=== PATIENT | male | born 1980 | race Caucasian/White ===

== ENCOUNTER 2019-05-26 04:31 | Emergency (ER) | payer OTHER ==
[~2019-05-26] VITALS: Ht 185.4 cm; Wt 95.3 kg
[2019-05-26 05:19] LABS: BASO % 0.6 % (0.0-1.0); EOS # 0.2 10*3/uL (0.0-0.4); EOS % 2.4 % (1.0-4.0); HEMATOCRIT 43.2 % (42.0-52.0); HEMOGLOBIN 14.8 g/dl (14.0-18.0); LYMPH # 1.5 10*3/uL (1.3-4.4); LYMPH % 22.3 % (27.0-41.0); MEAN CELL VOLUME 93.3 fl (80.0-94.0); MEAN CORPUSCULAR HGB CONC 34.3 g/dl (33.0-37.0); MEAN PLATELET VOLUME 9.8 fl (9.6-12.3); MONO # 0.6 10*3/uL (0.1-1.0); MONO % 9.8 % (3.0-9.0); NEUT # 4.2 10*3/uL (2.3-7.9); NEUT % 64.7 % (47.0-73.0); PLATELET COUNT AUTOMATED 226 10*3/uL (130-400); RED BLOOD COUNT 4.63 10*6/uL (4.50-5.90); RED CELL DISTRI WIDTH 12.5 % (0-14.5); WHITE BLOOD COUNT 6.5 10*3/uL (4.8-10.8)
[2019-05-26 05:34] LABS: ALBUMIN 3.8 gm/dl (3.1-4.5); ALKALINE PHOSPHATASE 52 U/L (45-117); BUN 20 mg/dl (7-24); CHLORIDE 108 mmol/L (98-107); CREATININE 0.87 mg/dL (0.70-1.30); POTASSIUM 3.4 mmol/L (3.5-5.1); SGOT/AST 15 IU/L (3-35); SGPT/ALT 23 U/L (12-78); SODIUM 140 mmol/L (136-145); TOTAL PROTEIN 6.9 gm/dL (6.4-8.2); URIC ACID 6.3 mg/dL (3.5-7.2)
[2019-05-26] MEDS ORDERED: LEVOFLOXACIN500 MG PO (06:28)
[2019-05-26] MEDS ORDERED: NORCO 5-325 TA1 EACH PO (06:28)
[2019-05-26] MEDS ORDERED: FLAGYL500 MG PO (06:28)
== END 2019-05-26 08:12 | disposition home or self-care (01) ==
LOC: ED 04:31
PROVIDERS: Emergency Medicine Emergency Medical Services
DX: L03.012 Cellulitis of left finger (principal); F17.210 Nicotine dependence, cigarettes, uncomplicated; Z88.0 Allergy status to penicillin

== ENCOUNTER 2019-06-04 11:44 | Emergency (ER) | payer OTHER ==
[~2019-06-04] VITALS: Ht 185.4 cm; Wt 90.7 kg
[~2019-06-04 11:44] MED LIST: FLAGYL500 MG PO; LEVOFLOXACIN500 MG PO; NORCO 5-325 TA1 EACH PO
== END 2019-06-04 12:20 | disposition home or self-care (01) ==
LOC: ED 11:44
DX: Z48.01 Encounter for change or removal of surgical wound dressing (principal); F17.210 Nicotine dependence, cigarettes, uncomplicated; Z88.0 Allergy status to penicillin; Z79.2 Long term (current) use of antibiotics; Z79.899 Other long term (current) drug therapy

== ENCOUNTER 2019-09-30 19:56 | Emergency (ER) | payer SELFPAY ==
[~2019-09-30] VITALS: Ht 185.4 cm; Wt 86.2 kg
[2019-09-30 20:35] LABS: BASO # 0.1 10*3/uL (0.0-0.1); BASO % 0.5 % (0.0-1.0); EOS # 0.1 10*3/uL (0.0-0.4); HEMATOCRIT 41.5 % (42.0-52.0); HEMOGLOBIN 14.1 g/dl (14.0-18.0); LYMPH # 1.2 10*3/uL (1.3-4.4); LYMPH % 11.5 % (27.0-41.0); MEAN CELL VOLUME 93.5 fl (80.0-94.0); MEAN CORPUSCULAR HGB 31.8 pg (27.0-31.0); MEAN PLATELET VOLUME 9.7 fl (9.6-12.3); MONO # 0.8 10*3/uL (0.1-1.0); MONO % 7.6 % (3.0-9.0); NEUT # 8.4 10*3/uL (2.3-7.9); NEUT % 79.1 % (47.0-73.0); PLATELET COUNT AUTOMATED 199 10*3/uL (130-400); RED BLOOD COUNT 4.44 10*6/uL (4.50-5.90); RED CELL DISTRI WIDTH 12.7 % (0-14.5); WHITE BLOOD COUNT 10.6 10*3/uL (4.8-10.8)
[2019-09-30 20:55] LABS: ALBUMIN 3.1 gm/dl (3.1-4.5); ALKALINE PHOSPHATASE 58 U/L (45-117); BUN 13 mg/dl (7-24); CHLORIDE 108 mmol/L (98-107); CREATININE 0.96 mg/dL (0.70-1.30); POTASSIUM 3.5 mmol/L (3.5-5.1); SGOT/AST 12 IU/L (3-35); SGPT/ALT 20 U/L (12-78); SODIUM 139 mmol/L (136-145); TOTAL PROTEIN 6.7 gm/dL (6.4-8.2)
[2019-09-30] MEDS ORDERED: IBU600 M1 PO (21:12)
[2019-09-30] MEDS ORDERED: VIBRAMYCIN100 MG PO (21:12)
== END 2019-09-30 21:45 | disposition home or self-care (01) ==
LOC: ED 19:56
PROVIDERS: Physician Assistant
DX: L02.413 Cutaneous abscess of right upper limb (principal); F17.210 Nicotine dependence, cigarettes, uncomplicated; Z88.0 Allergy status to penicillin

== ENCOUNTER 2019-10-04 10:03 | Emergency (ER) | payer SELFPAY ==
[~2019-10-04] VITALS: Ht 185.4 cm; Wt 86.2 kg
[~2019-10-04 10:03] MED LIST changes: +IBU600 M1 PO; +VIBRAMYCIN100 MG PO
== END 2019-10-04 10:32 | disposition home or self-care (01) ==
LOC: ED 10:03
DX: Z48.01 Encounter for change or removal of surgical wound dressing (principal); L53.9 Erythematous condition, unspecified; M79.89 Other specified soft tissue disorders; F17.210 Nicotine dependence, cigarettes, uncomplicated; Z88.0 Allergy status to penicillin; Z79.899 Other long term (current) drug therapy; Z79.2 Long term (current) use of antibiotics

== ENCOUNTER 2019-10-06 12:28 | Emergency (ER) | payer SELFPAY ==
[~2019-10-06] VITALS: Ht 185.4 cm; Wt 90.7 kg
== END 2019-10-06 13:44 | disposition home or self-care (01) ==
LOC: ED 12:28
DX: Z48.01 Encounter for change or removal of surgical wound dressing (principal); L02.413 Cutaneous abscess of right upper limb; F17.210 Nicotine dependence, cigarettes, uncomplicated; Z88.0 Allergy status to penicillin; Z79.899 Other long term (current) drug therapy; Z79.2 Long term (current) use of antibiotics

== ENCOUNTER 2019-12-13 18:39 | Emergency (ER) | payer SELFPAY ==
[~2019-12-13] VITALS: Ht 185.4 cm; Wt 95.3 kg
[2019-12-13] MEDS ORDERED: SEPTDS PO (20:13)
[2019-12-13] MEDS ORDERED: IBU800 MG PO (20:13)
[2019-12-13] MEDS ORDERED: TOBRAMYCIN 5 ML5 M1 OPH (20:13)
== END 2019-12-13 21:16 | disposition home or self-care (01) ==
LOC: ED 18:39
DX: T15.02XA Foreign body in cornea, left eye, initial encounter (principal); Z88.0 Allergy status to penicillin; Z79.899 Other long term (current) drug therapy; W39.XXXA Discharge of firework, initial encounter; Y93.89 Activity, other specified; Y92.096 Garden or yard of other non-institutional residence as the place of occurrence of the external cause; Y99.8 Other external cause status

== ENCOUNTER 2020-03-15 01:29 | Emergency (ER) | payer SELFPAY ==
[~2020-03-15] VITALS: Ht 185.4 cm; Wt 93.0 kg
[~2020-03-15 01:29] MED LIST changes: +IBU800 MG PO; +SEPTDS PO; +TOBRAMYCIN 5 ML5 M1 OPH
== END 2020-03-15 02:25 | disposition home or self-care (01) ==
LOC: ED 01:29
DX: S05.01XA Injury of conjunctiva and corneal abrasion without foreign body, right eye, initial encounter (principal); F17.200 Nicotine dependence, unspecified, uncomplicated; Z88.0 Allergy status to penicillin; Z79.899 Other long term (current) drug therapy; X58.XXXA Exposure to other specified factors, initial encounter; Y93.89 Activity, other specified; Y92.89 Other specified places as the place of occurrence of the external cause; Y99.8 Other external cause status

== ENCOUNTER 2022-10-05 06:10 | Emergency (ER) | payer SELFPAY | END 2022-10-05 06:47 | disposition left against medical advice (07) | LOC: ED 06:10 | DX: T50.901A Poisoning by unspecified drugs, medicaments and biological substances, accidental (unintentional), initial encounter (principal); F17.210 Nicotine dependence, cigarettes, uncomplicated; Z88.0 Allergy status to penicillin; Y92.89 Other specified places as the place of occurrence of the external cause ==

== ENCOUNTER 2022-11-27 12:38 | Emergency (ER) | payer SELFPAY ==
[~2022-11-27] VITALS: Wt 93.0 kg
== END 2022-11-27 14:00 | disposition home or self-care (01) ==
LOC: ED 12:38
DX: R50.9 Fever, unspecified (principal); Z20.822 Contact with and (suspected) exposure to COVID-19; F17.200 Nicotine dependence, unspecified, uncomplicated; Z88.0 Allergy status to penicillin; F10.10 Alcohol abuse, uncomplicated; F17.210 Nicotine dependence, cigarettes, uncomplicated; Z98.890 Other specified postprocedural states

== ENCOUNTER 2022-11-29 14:49 | Emergency (ER) | payer SELFPAY ==
[~2022-11-29] VITALS: Wt 90.7 kg
[2022-11-29 15:46] LABS: HEMATOCRIT 44.5 % (42.0-52.0); MEAN CELL VOLUME 87.6 fl (80.0-94.0); MEAN CORPUSCULAR HGB 31.1 pg (27.0-31.0); MEAN CORPUSCULAR HGB CONC 35.5 g/dl (33.0-37.0); MEAN PLATELET VOLUME 9.8 fl (9.6-12.3); PLATELET COUNT AUTOMATED 131 10*3/uL (130-400); RED BLOOD COUNT 5.08 10*6/uL (4.50-5.90); WHITE BLOOD COUNT 5.6 10*3/uL (4.8-10.8)
[2022-11-29 16:13] LABS: ALKALINE PHOSPHATASE 435 U/L (46-116); BUN 15 mg/dl (9-23); CHLORIDE 92 mmol/L (98-107); LIPASE 23 U/L (12-53); POTASSIUM 3.6 mmol/L (3.4-5.1); TOTAL PROTEIN 6.4 gm/dL (6.0-8.0)
[2022-11-29 16:14] LABS: SGPT/ALT > 3300 U/L (10-49)
[2022-11-29 16:23] LABS: MANUAL DIFF REFLEX YES
[2022-11-29 16:28] LABS: ATYPICAL LYMPHS 13 % (0-0); TOTAL CELLS COUNTED 100 #CELLS
[2022-11-29 16:29] LABS: BURR CELLS MODERATE
[2022-11-29 16:30] LABS: PLATELET SUFFICIENCY LOW (NORMAL)
== END 2022-11-29 16:59 | disposition home or self-care (01) ==
LOC: ED 14:49
PROVIDERS: Internal Medicine
DX: B17.9 Acute viral hepatitis, unspecified (principal); Z88.0 Allergy status to penicillin; Z90.89 Acquired absence of other organs; F10.10 Alcohol abuse, uncomplicated; F17.200 Nicotine dependence, unspecified, uncomplicated; F17.210 Nicotine dependence, cigarettes, uncomplicated

== ENCOUNTER 2022-11-30 12:19 | Emergency (ER) | payer SELFPAY ==
[~2022-11-30] VITALS: Ht 185.4 cm; Wt 90.7 kg
[2022-11-30 13:13] LABS: MEAN CELL VOLUME 89.9 fl (80.0-94.0); MEAN CORPUSCULAR HGB 32.1 pg (27.0-31.0); MEAN CORPUSCULAR HGB CONC 35.7 g/dl (33.0-37.0); MEAN PLATELET VOLUME 11.1 fl (9.6-12.3); PLATELET COUNT AUTOMATED 116 10*3/uL (130-400); RED BLOOD COUNT 5.45 10*6/uL (4.50-5.90); RED CELL DISTRI WIDTH 12.6 % (0-14.5); WHITE BLOOD COUNT 9.9 10*3/uL (4.8-10.8)
[2022-11-30 13:14] LABS: MANUAL DIFF REFLEX YES
[2022-11-30 13:32] LABS: ATYPICAL LYMPHS 18 % (0-0); BASOPHILS 1 % (0-1); TOTAL CELLS COUNTED 100 #CELLS
[2022-11-30 13:33] LABS: BURR CELLS MODERATE; PLATELET SUFFICIENCY LOW (NORMAL); POLYCHROMASIA SLIGHT
[2022-11-30 13:43] LABS: ALKALINE PHOSPHATASE 477 U/L (46-116); BUN 19 mg/dl (9-23); CHLORIDE 93 mmol/L (98-107); LIPASE 23 U/L (12-53); POTASSIUM 3.7 mmol/L (3.4-5.1)
[2022-11-30 13:46] LABS: SGPT/ALT > 3300 U/L (10-49)
[2022-11-30 14:13] LABS: INTERNATIONAL NORM RATIO 1.2 (2.0-3.5)
[2022-11-30 15:26] LABS: URINE AMPHETAMINES Positive (1000ng/ml); URINE BARBITURATES Negative (200ng/ml); URINE BENZODIAZEPINES Negative (200ng/ml); URINE CANNABINOIDS (THC) Positive (50ng/ml); URINE COCAINE Negative (300ng/ml); URINE METHADONE Negative (300ng/ml); URINE OPIATES Negative (300ng/ml); URINE PHENCYCLIDINE Negative (25ng/ml)
[2022-12-01 01:24] LABS: INTERNATIONAL NORM RATIO 1.2 (2.0-3.5)
[2022-12-01 01:45] LABS: ALKALINE PHOSPHATASE 405 U/L (46-116); BUN 15 mg/dl (9-23); CHLORIDE 97 mmol/L (98-107); POTASSIUM 3.9 mmol/L (3.4-5.1); TOTAL PROTEIN 6.2 gm/dL (6.0-8.0)
[2022-12-01 01:50] LABS: SGPT/ALT 2361 U/L (10-49)
[2022-12-01 08:15] LABS: INTERNATIONAL NORM RATIO 1.2 (2.0-3.5)
[2022-12-01 08:41] LABS: BUN 13 mg/dl (9-23); CHLORIDE 97 mmol/L (98-107); POTASSIUM 3.7 mmol/L (3.4-5.1); TOTAL PROTEIN 6.3 gm/dL (6.0-8.0)
[2022-12-01 08:51] LABS: SGPT/ALT 2170 U/L (10-49)
[2022-12-01 08:52] LABS: ALKALINE PHOSPHATASE 404 U/L (46-116)
== END 2022-12-01 12:43 | disposition short-term general hospital (02) ==
LOC: ED 12:19
PROVIDERS: Emergency Medicine; Internal Medicine; Student in an Organized Health Care Education/Training Program
DX: B17.9 Acute viral hepatitis, unspecified (principal); F17.200 Nicotine dependence, unspecified, uncomplicated; Z88.0 Allergy status to penicillin; Z91.018 Allergy to other foods

== ENCOUNTER 2023-05-02 17:57 | Emergency (ER) | payer SELFPAY | END 2023-05-02 19:19 | disposition home or self-care (01) | LOC: ED | DX: S31.115A Laceration without foreign body of abdominal wall, periumbilic region without penetration into peritoneal cavity, initial encounter (principal); Z88.8 Allergy status to other drugs, medicaments and biological substances; Z88.0 Allergy status to penicillin; Z98.890 Other specified postprocedural states; F10.10 Alcohol abuse, uncomplicated; F17.200 Nicotine dependence, unspecified, uncomplicated; W26.9XXA Contact with unspecified sharp object(s), initial encounter; Y93.89 Activity, other specified; Y92.89 Other specified places as the place of occurrence of the external cause; Y99.8 Other external cause status ==